=== PATIENT | female | born 1960 | race Caucasian/White ===

== ENCOUNTER → 2021-10-22 | Outpatient (CLI) | payer OTHER ==
--- NOTE | 2021-10-22 08:25 | RAD ---
EXAM: Pelvis and left hip, 2 views. HISTORY: Pain. COMPARISON: None. FINDINGS: A frontal view of the pelvis and frog-leg view left hip are obtained. There is no fracture, dislocation or subluxation. There is a tiny right os acetabulum. There is mild lumbar scoliosis. The re is degenerative change involving the lumbar spine, not formally assessed on this exam. IMPRESSION: No acute osseous finding. Electronically signed by: Maddi Henderson MD (10/22/2021 8:23 AM) [id number]
--- NOTE | 2021-10-22 09:21 | RAD ---
EXAM: Lumbar spine MRI without contrast. HISTORY: Pain. TECHNIQUE: Multiplanar, multisequence magnetic resonance imaging of the lumbar spine was performed wi thout contrast. COMPARISON: None. FINDINGS: There is lumbar dextroscoliosis centered at L3. There is 3 mm grade 1 anterolisthesis of L5 on S1. There is degenerative endplate remodeling with disc space narrowing and osteophytosis at mult iple levels. This is predominantly along the left aspects of L2-L3 and L3-L4 and right aspects of L4- L5 and L5-S1. This corresponds with levels of maximum scoliotic concavity. There is no suspicious oss eous lesion. There is no acute or subacute fracture. The conus terminates at L1. At L1-L2, there is a right extraforaminal to lateral disc protrusion superimposed on a right lateral predominant disc bulge and endplate remodeling. There is no stenosis. At L2-L3, there is a left lateral recess disc protrusion with slight inferior extrusion. There is als o a right foraminal to extra foraminal disc protrusion and osteophyte complex. These are superimposed on a left lateral predominant disc bulge and endplate osteophytosis. There is mild right foraminal s tenosis with suspected abutment of the exiting right L2 nerve root. There is effacement of the left l ateral recess and deviation of the traversing left nerve roots. There is mild central canal stenosis. At L3-L4, there is a left lateral predominant disc bulge and endplate remodeling. There is no stenosi s. At L4-L5, there is a shallow right paracentral to lateral recess disc protrusion and annular tear sup erimposed on a disc bulge and right lateral predominant endplate remodeling. There is mild right face t arthropathy. There is narrowing of the right lateral recess and abutment the traversing right L5 ne rve root. At L5-S1, there is severe bilateral facet arthropathy. There is grade 1 anterolisthesis. There is no stenosis. IMPRESSION: 1. L2-L3: Left lateral recess disc protrusion and slight inferior extrusion resulting in effacement o f the left lateral recess and deviation of the traversing left nerve roots. There is also a right for aminal to extra foraminal disc protrusion and osteophyte complex at this level contributing to mild r ight foraminal stenosis and abutment the exiting right L2 nerve root. 2. L4-L5: Shallow right paracentral to lateral recess disc protrusion superimposed on additional dege nerative changes which result in narrowing of the right lateral recess and abutment the traversing ri ght L5 nerve root. 3. Degenerative change at additional lumbar levels, without significant stenosis. Electronically signed by: Maddi Henderson MD (10/22/2021 9:19 AM) [id number]
== END ==
LOC: MRI 08:43
PROVIDERS: ATTEND Family Medicine
DX: M47.26 Other spondylosis with radiculopathy, lumbar region (principal); M48.8X7 Other specified spondylopathies, lumbosacral region; M43.17 Spondylolisthesis, lumbosacral region; M48.061 Spinal stenosis, lumbar region without neurogenic claudication; M51.26 Other intervertebral disc displacement, lumbar region; M41.86 Other forms of scoliosis, lumbar region; M25.552 Pain in left hip
CPT/HCPCS: 72148; 73501